=== PATIENT | female | born 1965 | race Caucasian/White ===

== ENCOUNTER 2018-09-24 11:19 | Day surgery (SDC) | payer OTHER ==
[~2018-09-24] VITALS: Ht 182.9 cm; Wt 90.9 kg
[2018-09-24 11:53] VITALS: BP 120/78
[2018-09-24] MEDS ORDERED: FENTANYL PF 100 MCG/2ML ONE (12:01)
[2018-09-24] MEDS ORDERED: TICAGRELOR 90 MG TABLET ONE (12:02)
[2018-09-24] MEDS ORDERED: LIDOCAINE 2%, 20ML ONE (12:02)
[2018-09-24] MEDS ORDERED: HEPARIN 1,000 UNITS/ML, 10ML ONE (12:02)
[2018-09-24] MEDS ORDERED: MIDAZOLAM 1 MG/ML, 5ML ONE (12:02)
[2018-09-24] MEDS ORDERED: VERAPAMIL 2.5 MG/ML, 2ML ONE (12:02)
[2018-09-24] MEDS ORDERED: FLUT1BLS INH (12:04)
[2018-09-24] MEDS ORDERED: LISI5TAB7 PO (12:04)
[2018-09-24] MEDS ORDERED: ASPI-496 PO (12:04)
[2018-09-24] MEDS ORDERED: FURO20TA3 PO (12:04)
[2018-09-24] MEDS ORDERED: POTA20TA6 PO (12:04)
[2018-09-24] MEDS ORDERED: BIVALIRUDIN 250 MG ONE (12:11)
[2018-09-24] MEDS ORDERED: SODIUM CHLORIDE 0.9% 1,000 ML IV SCH (12:41)
== END 2018-09-24 14:14 | disposition home or self-care (01) ==
LOC: CACL 11:19
PROVIDERS: ATTEND Internal Medicine Cardiovascular Disease
DX: I11.0 Hypertensive heart disease with heart failure (principal); I50.20 Unspecified systolic (congestive) heart failure; I35.0 Nonrheumatic aortic (valve) stenosis; E78.00 Pure hypercholesterolemia, unspecified; Z79.82 Long term (current) use of aspirin; Z79.1 Long term (current) use of non-steroidal anti-inflammatories (NSAID); Z79.899 Other long term (current) drug therapy; Z88.8 Allergy status to other drugs, medicaments and biological substances; Z85.828 Personal history of other malignant neoplasm of skin
CPT/HCPCS: 93458; 99156; C1769; C1894; J1644; J2250; J3010; Q9967; J0583